=== PATIENT | male | born 1980 | race American Indian/Alaskan Native ===

== ENCOUNTER 2019-08-24 18:05 | Emergency (ER) | payer SELFPAY ==
[2019-08-24] MEDS ORDERED: ONDANSETRON 4 MG ODT TAB PO ONE (19:34)
[2019-08-24] MEDS ORDERED: IBUPROFEN 800 MG TAB PO ONE (19:34)
--- NOTE | 2019-08-24 19:34 | Event Note ---
ED Screening Note ED Screening Note: pt has fever that began this morning has associated headache, dry cough, n/v/d took tylenol at 3 pm today PMHx none no allergies to meds no sick contacts This initial assessment/diagnostic orders/clinical plan/treatment(s) is/are subject to change based on patients health status, clinical progression and re- assessment by fellow clinical providers in the ED. Further treatment and workup at subsequent clinical providers discretion. Patient/guardian urged not to elope from the ED as their condition may be serious if not clinically assessed and managed. Initial orders include: ibuprofen 800 mg and zofran 4 mg
--- NOTE | 2019-08-24 19:37 | Emergency Department Report ---
ED Fever HPI - General Chief Complaint: Fever Stated Complaint: FLU SX Time Seen by Provider: 08/24/19 19:32 - History of Present Illness Initial Comments: pt has fever that began this morning. he has associated headache, dry cough, n/v/d. pt states that he took tylenol at 3 pm today. no sore throat, no ear pain. PMHx none. no allergies to meds. no sick contacts. ED Review of Systems ROS: Stated complaint: FLU SX Other details as noted in HPI Comment: All other systems reviewed and negative ED Past Medical Hx - Past Medical History Previous Medical History?: No - Surgical History Past Surgical History?: No - Social History Smoking Status: Never Smoker Substance Use Type: None - Medications Home Medications: Home Medications Medication Instructions Recorded Confirmed Last Taken Type Oseltamivir [Tamiflu] 75 mg PO BID 5 Days #10 cap 08/24/19 Unknown Rx ED Physical Exam - General Limitations: No Limitations General appearance: alert, in no apparent distress - Head Head exam: Present: atraumatic, normocephalic - Eye Eye exam: Present: normal appearance - ENT ENT exam: Present: normal orophraynx, mucous membranes moist, TM's normal bilaterally, normal external ear exam - Respiratory Respiratory exam: Present: normal lung sounds bilaterally. Absent: respiratory distress, wheezes, rales, rhonchi, stridor, chest wall tenderness, accessory muscle use, decreased breath sounds, prolonged expiratory - Cardiovascular Cardiovascular Exam: Present: regular rate, normal rhythm, normal heart sounds. Absent: systolic murmur, diastolic murmur, rubs, gallop - Neurological Exam Neurological exam: Present: alert, oriented X3 - Psychiatric Psychiatric exam: Present: normal affect, normal mood - Skin Skin exam: Present: warm, dry, intact ED Course Vital Signs 08/24/19 08/24/19 08/24/19 18:11 18:33 21:04 Temperature 103.0 F H 103 F H 99.0 F Pulse Rate 102 H 104 H 94 H Respiratory 18 19 17 Rate Blood Pressure 125/57 125/57 Blood Pressure 110/69 [Left] O2 Sat by Pulse 96 100 94 Oximetry ED Medical Decision Making - Lab Data Vital Signs 08/24/19 08/24/19 08/24/19 18:11 18:33 21:04 Temperature 103.0 F H 103 F H 99.0 F Pulse Rate 102 H 104 H 94 H Respiratory 18 19 17 Rate Blood Pressure 125/57 125/57 Blood Pressure 110/69 [Left] O2 Sat by Pulse 96 100 94 Oximetry - Medical Decision Making pt has fever that began this morning. he has associated headache, dry cough, n/v/d. pt states that he took tylenol at 3 pm today. no sore throat, no ear pain. PMHx none. no allergies to meds. no sick contacts. Initial vitals with elevated temperature and heart rate. Patient given ibuprofen and Zofran. Vitals improved. Patient had no further episodes of nausea or vomiting and is able tolerate by mouth intake. pt has clinical signs and symptoms of influenza. Patient is within the 48 hour range for Tamiflu. Advised patient that it would only shorten symptoms 1 day and he wanted to continue with therapy. advised to please take medication as prescribed. increase your fluid intake over the next several days, get plenty of rest. may alternate tylenol or ibuprofen every 4 hours as needed for a fever. may use over the counter cough/cold medication. follow up with a primary care doctor in the next 2-3 days. return to the emergency room for any new or worsening symptoms. - Differential Diagnosis influenza, PNA, otitis, pharyngitis, URI, viral syndrome Critical care attestation.: If time is entered above; I have spent that time in minutes in the direct care of this critically ill patient, excluding procedure time. ED Disposition Clinical Impression: Influenza Disposition: DC-01 TO HOME OR SELFCARE Is pt being admited?: No Does the pt Need Aspirin: No Condition: Stable Instructions: Influenza (ED) Additional Instructions: please take medication as prescribed. increase your fluid intake over the next several days, get plenty of rest. may alternate tylenol or ibuprofen every 4 hours as needed for a fever. may use over the counter cough/cold medication. follow up with a primary care doctor in the next 2-3 days. return to the emergency room for any new or worsening symptoms. Prescriptions: Oseltamivir [Tamiflu] 75 mg PO BID 5 Days #10 cap Referrals: GRETCHEN THOMAS MD [Staff Physician] - 2-3 Days [facility] [Provider Group] - 2-3 Days [facility] [Outside] - 2-3 Days Time of Disposition: 20:59 Print Language: INDONESIAN
[2019-08-24] MEDS ORDERED: IBUPROFEN 800 MG TAB ONE (19:38)
[2019-08-24] MEDS ORDERED: ONDANSETRON 4 MG ODT TAB ONE (19:39)
[2019-08-24 21:05] VITALS: BP 110/69
== END 2019-08-24 21:04 | disposition home or self-care (01) ==
LOC: ED 18:05
DX: J11.1 Influenza due to unidentified influenza virus with other respiratory manifestations (principal)
CPT/HCPCS: 99282; Q0162